=== PATIENT | male | born 1960 | race African-American/Black ===

== ENCOUNTER 2023-10-30 16:11 | Emergency (ER) | payer OTHER ==
[~2023-10-30] VITALS: Ht 172.7 cm; Wt 86.0 kg
[2023-10-30 16:57] LABS: Basophils # (auto) 0 10 ^3/uL (0-0.2); Basophils % (auto) 0.6 % (0.0-2.0); Eosinophils # (auto) 0.2 10 ^3/uL (0-0.8); Eosinophils % (auto) 4.2 % (0.0-7.0); Hematocrit 38.3 % (41.0-53.0); Hemoglobin 12.7 g/dL (13.5-17.5); Lymphocytes % (auto) 39.8 % (10.0-50.0); Mean Corpuscular Hemoglobin 29.7 pg (28.0-32.0); Mean Corpuscular Hgb Conc. 33.1 g/dL (32.0-36.0); Mean Corpuscular Volume 89.8 fL (80.0-100.0); Monocytes # (auto) 0.5 10 ^3/uL (0-1.3); Monocytes % (auto) 10.4 % (0.0-12.0); Neutrophils # (auto) 2.3 10 ^3/uL (1.6-8.6); Nucleated Red Blood Cells % 0.1 %; Red Blood Cells 4.27 10^6/uL (4.5-5.90); Red Cell Distribution Width 14.5 % (11.8-14.3); White Blood Cell 5.1 10^3/uL (4.4-10.8)
[2023-10-30 17:17] LABS: Alanine Aminotransferase 26 U/L (7-40); Albumin 4.3 g/dL (3.2-4.8); Alkaline Phosphatase 83 U/L (46-116); Anion Gap 7 (5-15); Aspartate Aminotransferase 33 U/L (13-40); BUN/Creatinine Ratio 11.6 (10.0-20.0); Blood Urea Nitrogen 17 mg/dL (9-23); Calcium 9.4 mg/dL (8.5-10.1); Carbon Dioxide 28 mmol/L (20-30); Chloride 107 mmol/L (98-107); Glucose 109 mg/dL (74-106); Sodium 142 mmol/L (136-145)
[2023-10-30 17:18] LABS: Bilirubin, Total 0.4 mg/dL (0.2-1.0); Total Protein 6.9 g/dL (5.7-8.2)
[2023-10-30] MEDS: SODIUM CHLORIDE 0.9% 1,000 ML IV ONE (18:48)
[2023-10-30 20:45] LABS: Chloride 108 mmol/L (98-107); Potassium 3.9 mmol/L (3.5-5.1); Sodium 141 mmol/L (136-145)
[2023-10-30 20:46] LABS: Anion Gap 10 (5-15); Calcium 9.2 mg/dL (8.5-10.1); Carbon Dioxide 23 mmol/L (20-30)
[2023-10-30 20:51] LABS: BUN/Creatinine Ratio 8.5 (10.0-20.0); Blood Urea Nitrogen 12 mg/dL (9-23); Glucose 94 mg/dL (74-106)
[2023-10-30] MEDS: NITROGLYCERIN 0.4 MG SL TAB SL ONE (22:38)
[2023-10-30] MEDS: LISINOPRIL 20 MG TAB PO ONE (22:40)
[2023-10-31 03:01] VITALS: BP 153/89; PULSE 63; RESP 16; TEMP 98.8; O2SAT 100
[2023-11-01 08:06] LABS: PSA Free 0.08 ng/mL; Prostate Specific Antigen 1.6 ng/mL (0.0-4.0)
== END 2023-10-31 04:08 ==
LOC: EEVIPCON 16:11 → ER 16:11
DX: I12.9 Hypertensive chronic kidney disease with stage 1 through stage 4 chronic kidney disease, or unspecified chronic kidney disease (principal); N18.9 Chronic kidney disease, unspecified; E11.22 Type 2 diabetes mellitus with diabetic chronic kidney disease; E78.5 Hyperlipidemia, unspecified; R51.9 Headache, unspecified
CPT/HCPCS: 36415; 70450; 80048; 80053; 83605; 84154; 84484; 85025; 93005; 96360; 96361; 99284; J7030

== ENCOUNTER 2024-01-08 11:58 | Inpatient (IN) | payer OTHER ==
[~2024-01-08] VITALS: Ht 172.7 cm; Wt 94.0 kg
[2024-01-08] MEDS: SODIUM CHLORIDE 0.9% 1,000 ML IVB ONE ×2 (13:00→17:51)
[2024-01-08] MEDS: ASPirin 81 mg TAB PO ONE (13:00)
[2024-01-08] MEDS: SODIUM CHLORIDE 0.9% 1,000 ML IV ONE (13:00)
[2024-01-08 13:38] LABS: Basophils # (auto) 0.1 10 ^3/uL (0-0.2); Basophils % (auto) 0.9 % (0.0-2.0); Eosinophils # (auto) 0.2 10 ^3/uL (0-0.8); Eosinophils % (auto) 3.8 % (0.0-7.0); Hematocrit 41.1 % (41.0-53.0); Hemoglobin 13.6 g/dL (13.5-17.5); Lymphocytes # (auto) 1.8 10 ^3/uL (0.4-5.4); Lymphocytes % (auto) 30.8 % (10.0-50.0); Mean Corpuscular Hemoglobin 29.8 pg (28.0-32.0); Mean Corpuscular Hgb Conc. 33.1 g/dL (32.0-36.0); Mean Corpuscular Volume 90.2 fL (80.0-100.0); Monocytes # (auto) 0.6 10 ^3/uL (0-1.3); Monocytes % (auto) 10.7 % (0.0-12.0); Neutrophils # (auto) 3.1 10 ^3/uL (1.6-8.6); Neutrophils % (auto) 53.8 % (37.0-80.0); Nucleated Red Blood Cells % 0.1 %; Red Blood Cells 4.56 10^6/uL (4.5-5.90); Red Cell Distribution Width 14.9 % (11.8-14.3); White Blood Cell 5.7 10^3/uL (4.4-10.8)
[2024-01-08 14:43] LABS: Alanine Aminotransferase 27 U/L (7-40); Albumin 4.6 g/dL (3.2-4.8); Alkaline Phosphatase 86 U/L (46-116); Anion Gap 8 (5-15); Aspartate Aminotransferase 32 U/L (13-40); BUN/Creatinine Ratio 14.9 (10.0-20.0); Blood Urea Nitrogen 21 mg/dL (9-23); Carbon Dioxide 22 mmol/L (20-30); Chloride 109 mmol/L (98-107); Creatine Kinase IFCC 657 U/L (46-171); Glucose 92 mg/dL (74-106); Magnesium 1.8 mg/dL (1.6-2.6); Potassium 4.4 mmol/L (3.5-5.1); Sodium 139 mmol/L (136-145)
[2024-01-08 14:44] LABS: Bilirubin, Total 0.7 mg/dL (0.2-1.0); Total Protein 7.6 g/dL (5.7-8.2)
[2024-01-08] MEDS: cloNIDine HCL 0.1 MG TAB PO ONE (17:15)
[2024-01-08] MEDS ORDERED: NITROGLYCERIN 0.4 MG SL TAB SL PRN (20:30)
[2024-01-08] MEDS ORDERED: MORPHINE SULFATE INJ 2 MG/ml SYRG IV PRN (20:30)
[2024-01-08] MEDS: SOD CHL 0.45% 1,000 ML IV ONE (21:10)
[2024-01-08 21:31] LABS: Urine Bacteria None Seen /hpf (None Seen)
[2024-01-08 21:54] LABS: Amphetamine Screen, Urine Neg (NEGATIVE); Barbiturate Scree,Urine Neg (NEGATIVE); Benzodiazephine Screen, Urine Neg (NEGATIVE)
[2024-01-08 21:55] LABS: Cannabinoid Screen, Urine Neg (NEGATIVE); Cocaine Screen, Urine Neg (NEGATIVE); Opiate Scree,Urine Neg (NEGATIVE); Phencyclidine Screen, Urine Neg (NEGATIVE)
[2024-01-08 22:03] LABS: Urine Blood Negative /uL (Negative); Urine Clarity Clear (Clear); Urine Color Light-Yellow (Yellow); Urine Protein, UAD TRACE (Negative); Urine Specific Gravity 1.012 (1.001-1.035); Urine Urobilinogen Normal (Negative); Urine WBC <1 /hpf (0 - 3); Urine pH 5.5 (5.0-9.0)
[2024-01-09] VITALS (8 sets, daily range): BP systolic 114–178; BP diastolic 63–88; PULSE 53–85; RESP 15–20; TEMP 97.4–98.7; O2SAT 93–100
[2024-01-09] MEDS ORDERED: cloNIDine HCL 0.1 MG TAB PO PRN (02:00)
[2024-01-09] MEDS: amLODIPine BESYLATE 5 MG TAB PO ONE (02:01)
[2024-01-09 06:39] LABS: Alanine Aminotransferase 19 U/L (7-40); Albumin 3.9 g/dL (3.2-4.8); Alkaline Phosphatase 74 U/L (46-116); Anion Gap 7 (5-15); Aspartate Aminotransferase 28 U/L (13-40); BUN/Creatinine Ratio 11.2 (10.0-20.0); Blood Urea Nitrogen 15 mg/dL (9-23); Carbon Dioxide 24 mmol/L (20-30); Chloride 108 mmol/L (98-107); Creatine Kinase IFCC 409 U/L (46-171); Glucose 92 mg/dL (74-106); Potassium 3.7 mmol/L (3.5-5.1); Sodium 139 mmol/L (136-145)
[2024-01-09 06:40] LABS: Bilirubin, Total 0.9 mg/dL (0.2-1.0); Total Protein 6.6 g/dL (5.7-8.2)
[2024-01-09 07:33] LABS: Triglycerides 59 mg/dL (< 150)
[2024-01-09 07:34] LABS: LDL Cholesterol 109 mg/dL (< 100)
[2024-01-09 07:35] LABS: Cholesterol 165 mg/dL (< 200); HDL Cholesterol 44 mg/dL (40-59)
[2024-01-09 08:06] LABS: PSA Free 0.11 ng/mL; Prostate Specific Antigen 1.4 ng/mL (0.0-4.0)
[2024-01-09] MEDS: ENOXAPARIN SOD 40 MG/0.4 ML SYRINGE SC ONE (08:31)
[2024-01-09] MEDS: amLODIPine BESYLATE 5 MG TAB PO SCH (08:32)
[2024-01-09] MEDS ORDERED: amLODIPine BESYLATE 5 MG TAB PO SCH (10:00)
[2024-01-09] MEDS: LISINOPRIL 5 MG TAB PO SCH (10:58)
[2024-01-09] MEDS: NIFEdipine ER 30 MG TAB PO SCH (13:25)
[2024-01-10] VITALS (8 sets, daily range): BP systolic 117–140; BP diastolic 65–70; PULSE 57–65; RESP 16–18; TEMP 97.9–98.6; O2SAT 93–98
[2024-01-10 06:50] LABS: Alanine Aminotransferase 16 U/L (7-40); Alkaline Phosphatase 83 U/L (46-116); Anion Gap 9 (5-15); Aspartate Aminotransferase 33 U/L (13-40); BUN/Creatinine Ratio 13.8 (10.0-20.0); Blood Urea Nitrogen 20 mg/dL (9-23); Calcium 9.8 mg/dL (8.5-10.1); Carbon Dioxide 22 mmol/L (20-30); Chloride 107 mmol/L (98-107); Glucose 115 mg/dL (74-106); Potassium 4.1 mmol/L (3.5-5.1); Sodium 138 mmol/L (136-145)
[2024-01-10 06:51] LABS: Albumin 4.4 g/dL (3.2-4.8); Bilirubin, Total 0.9 mg/dL (0.2-1.0); Creatine Kinase IFCC 843 U/L (46-171); Total Protein 7.6 g/dL (5.7-8.2)
[2024-01-10] MEDS: HYDROcodone-ACET 10/325MG TAB PO PRN (10:03)
[2024-01-10] MEDS: ENOXAPARIN SOD 40 MG/0.4 ML SYRINGE SC ONE (18:58)
[2024-01-10] MEDS: SODIUM CHLORIDE 0.9% 1,000 ML IV ONE (18:58)
[2024-01-10] MEDS: ATORVASTATIN 20 MG TAB PO SCH (22:33)
[2024-01-11] VITALS (8 sets, daily range): BP systolic 123–150; BP diastolic 61–82; PULSE 65–78; RESP 17–19; TEMP 97.8–98.7; O2SAT 95–99
[2024-01-11 07:38] LABS: Anion Gap 8 (5-15); Carbon Dioxide 24 mmol/L (20-30); Chloride 106 mmol/L (98-107); Potassium 4.1 mmol/L (3.5-5.1); Sodium 138 mmol/L (136-145)
[2024-01-11 07:39] LABS: Calcium 10.1 mg/dL (8.7-10.4)
[2024-01-11 07:44] LABS: BUN/Creatinine Ratio 13.7 (10.0-20.0); Blood Urea Nitrogen 21 mg/dL (9-23); Glucose 110 mg/dL (74-106)
[2024-01-11] MEDS ORDERED: ENOXAPARIN SOD 40 MG/0.4 ML SYRINGE SC SCH (10:00)
[2024-01-11] MEDS: SODIUM CHLORIDE 0.9% 1,000 ML IV SCH (11:56)
[2024-01-11] MEDS: ENOXAPARIN SOD 40 MG/0.4 ML SYRINGE SC SCH (11:57)
[2024-01-11] MEDS: ASPirin 81 mg TAB PO SCH (11:59)
[2024-01-11 14:04] LABS: Urine Bacteria None Seen /hpf (None Seen); Urine WBC None Seen /hpf (0 - 3)
[2024-01-11 14:24] LABS: Urine Blood Negative /uL (Negative); Urine Clarity Clear (Clear); Urine Color Light-Yellow (Yellow); Urine Protein, UAD Negative (Negative); Urine Specific Gravity 1.012 (1.001-1.035); Urine Urobilinogen Normal (Negative); Urine pH 5.5 (5.0-9.0)
[2024-01-11 14:35] LABS: Creatinine, Urine 84.28 mg/dL (30.0-125.0)
[2024-01-12 01:00] VITALS: BP 142/72; PULSE 68; RESP 17; TEMP 98.2; O2SAT 98
[2024-01-12 05:00] VITALS: BP 142/65; PULSE 74; RESP 18; TEMP 98.1; O2SAT 96
[2024-01-12 06:51] LABS: Calcium 10.1 mg/dL (8.7-10.4); Chloride 104 mmol/L (98-107); Potassium 4.1 mmol/L (3.5-5.1); Sodium 136 mmol/L (136-145)
[2024-01-12 06:52] LABS: Anion Gap 8 (5-15); Carbon Dioxide 24 mmol/L (20-30)
[2024-01-12 06:58] LABS: BUN/Creatinine Ratio 13.4 (10.0-20.0); Blood Urea Nitrogen 19 mg/dL (9-23); Glucose 109 mg/dL (74-106)
[2024-01-12 08:00] VITALS: PULSE 73; RESP 18; O2SAT 98
[2024-01-12 08:38] VITALS: BP 136/72; PULSE 73; RESP 18; TEMP 98.1; O2SAT 98
[2024-01-12 20:00] VITALS: BP 149/68; PULSE 82; RESP 18; TEMP 99; O2SAT 93
[2024-01-12 21:14] VITALS: BP 149/68; PULSE 82; RESP 18; TEMP 99; O2SAT 93
[2024-01-13] VITALS (7 sets, daily range): BP systolic 111–137; BP diastolic 61–78; PULSE 70–102; RESP 16–18; TEMP 98.5–100.3; O2SAT 93–97
[2024-01-14 08:00] VITALS: BP 104/59; PULSE 87; RESP 20; TEMP 99.5; O2SAT 94
[2024-01-14 09:00] VITALS: BP 104/59; PULSE 87; RESP 20; TEMP 99.5; O2SAT 94
[2024-01-14] MEDS: ADENOSINE 79 MG in GIVE UN-DILUTED 0 ML IV STA (10:12)
[2024-01-14 12:54] VITALS: BP 118/62; PULSE 71; RESP 18; TEMP 99.1; O2SAT 96
[2024-01-14 17:00] VITALS: BP 121/51; PULSE 68; RESP 18; TEMP 99.8; O2SAT 92
[2024-01-14 18:52] VITALS: BP 113/64; PULSE 75; RESP 19; TEMP 98.9; O2SAT 96
== END 2024-01-14 19:10 | DRG 557 ==
LOC: ER 11:58 → EEVIPCON 11:58 → EDBD 11:58 → ER 15:26 → OVERFLOW 20:35 → WEST WING 20:35
PROVIDERS: ADMIT Internal Medicine; ATTEND Internal Medicine
DX: M62.82 Rhabdomyolysis (principal); N17.0 Acute kidney failure with tubular necrosis; C79.51 Secondary malignant neoplasm of bone; I12.9 Hypertensive chronic kidney disease with stage 1 through stage 4 chronic kidney disease, or unspecified chronic kidney disease; C61 Malignant neoplasm of prostate; I16.0 Hypertensive urgency; E78.5 Hyperlipidemia, unspecified; R74.8 Abnormal levels of other serum enzymes; N18.30 Chronic kidney disease, stage 3 unspecified; R97.20 Elevated prostate specific antigen [PSA]; D57.3 Sickle-cell trait; D64.9 Anemia, unspecified; Z92.21 Personal history of antineoplastic chemotherapy; Z92.3 Personal history of irradiation; Z85.46 Personal history of malignant neoplasm of prostate; Z82.49 Family history of ischemic heart disease and other diseases of the circulatory system; Z83.3 Family history of diabetes mellitus; Z82.3 Family history of stroke; Z91.199 Patient's noncompliance with other medical treatment and regimen due to unspecified reason; Z79.899 Other long term (current) drug therapy
CPT/HCPCS: 36415; 71046; 71101; 72220; 78306; 78452; 80048; 80053; 80061; 80307; 81001; 82550; 82553; 82570; 83615; 83735; 83935; 84154; 84300; 84443; 84484; 85025; 93005; 93017; 93306; 96360; 96361; G0378; J0153